=== PATIENT | female | born 1955 | race Caucasian/White ===

== ENCOUNTER → 2016-05-30 | Day surgery (SDC) | payer BC | END | disposition home or self-care (01) | LOC: SDCH 06:32 | DX: D12.4 Benign neoplasm of descending colon (principal); K57.30 Diverticulosis of large intestine without perforation or abscess without bleeding; Z90.89 Acquired absence of other organs; Z87.891 Personal history of nicotine dependence | CPT/HCPCS: J2704; Q0139 ==